=== PATIENT | female | born 1980 | race American Indian/Alaskan Native ===

== ENCOUNTER 2021-12-10 14:48 | Emergency (ER) | payer BC ==
--- NOTE | 2021-12-10 15:17 | Emergency Department Report ---
Blank Doc - Documentation Documentation: [facility] Consult Note # Demographics Consult Type: Acute Stroke Level 2 (4.5-24 hrs) Patient Location: Emergency Room First Name: Sayda Last Name: Ayaan Age: 41 Gender: Female Facility: [facility] Time of Initial Page ( Time): 12/10/2021, 14:27 Time of Return Call ( Time): 12/10/2021, 14:27 # HPI History: pt was last normal at 0700, returned home and found her with right sided weakness and aphasia. # Scores Time of exam and NIHSS ( Time): 12/10/2021, 15:13 Level of Consciousness 1a: [0] = Alert; keenly responsive LOC Questions 1b: [2] = Answers neither correctly LOC Commands 1c: [2] = Performs neither correctly Best Gaze 2: [0] = Normal Visual 3: [0] = No visual loss Facial Palsy 4: [0] = Normal symmetrical movements Motor Arm Left 5a: [2] = Some effort against gravity Motor Arm Right 5b: [3] = No effort against gravity Motor Leg Left 6a: [0] = No drift Motor Leg Right 6b: [0] = No drift Limb Ataxia 7: [0] = Absent Sensory 8: [0] = Normal Best Language 9: [3] = Mute Dysarthria 10: [2] = Severe dysarthria Extinction and Inattention 11: [0] = No abnormality NIHSS Total: 14 # PMH-FH-SH Past Medical History: Hodkin Lymphoma # Data Head CT: early ischemic change preliminarily reviewed by me, please refer to radiology read for official reading # Assessment Impression: Ischemic Stroke (Acute) # Plan Thrombolytic/Intervention: NOT IV Thrombolysis or IA Intervention candidate Thrombolytic Exclusion: > 4.5 hours Intraarterial Exclusion: unfavorable imaging/hypodensity Blood Pressure Management: labetolol Target Blood Pressure: SBP < 220 SBP > 100 Labs: hemoglobin A1c lipid panel Imaging: (urgency: STAT): CT Angiogram Head and CT Angiogram Neck AND call back with results if abnormal Imaging: (urgency: routine): MRI Brain without contrast Diagnostic Test: echo without bubble study Therapy/Evaluation: NPO until swallow evaluation PT/OT evaluation speech/swallow consultation Medication: aspirin 81 mg daily start statin with goal of LDL < 70 DVT Prophylaxis: SCD Other: LDL < 70 If patient has any neurological deterioration please call me back immediately permissive hypertension telemetry monitoring I have discussed my recommendations with the referring provider Disposition: admit # Logistics Telemedicine: Interactive 2 way audio and visual telecommunication technology was utilized during this visit
[2021-12-10 15:46] LABS: Basophils % (Auto) 0.3 % (0.0-1.8); Hematocrit 37.7 % (30.3-42.9); Hemoglobin 12.1 gm/dl (10.1-14.3); Lymphocytes # (Auto) 0.7 K/mm3 (1.2-5.4); Lymphocytes % (Auto) 9.8 % (13.4-35.0); Mean Corpuscular HGB Conc 32 % (30-34); Mean Corpuscular Volume 103 fl (79-97); Monocytes # (Auto) 0.2 K/mm3 (0.0-0.8); Monocytes % (Auto) 2.2 % (0.0-7.3); Platelet Count 209 K/mm3 (140-440); Red Blood Count 3.68 M/mm3 (3.65-5.03); Red Cell Distribution Width 13.8 % (13.2-15.2)
[2021-12-10 15:58] LABS: INR 0.93 (0.87-1.13); Partial Thromboplastin Time 28.3 Sec. (24.2-36.6)
[2021-12-10 15:59] LABS: Thrombin Time 18.9 Sec. (15.1-19.6)
[2021-12-10 16:01] LABS: Creatine Kinase MB 1.9 ng/mL (0.0-4.0)
--- NOTE | 2021-12-10 16:01 | Cat Scan Report ---
CT head/brain wo con INDICATION / CLINICAL INFORMATION: 41 years Female; Stroke symptoms. TECHNIQUE: Routine CT head without contrast. All CT scans at this location are performed using CT dos e reduction for ALARA by means of automated exposure control. COMPARISON: None. FINDINGS: BRAIN / INTRACRANIAL CONTENTS: Subtle loss of juan/white differentiation suggested in the left latera l gangliocapsular region. Early ischemic changes may be present. There is a small focus of high atten uation in the proximal M1 segment on the left-small thrombus cannot be excluded, although atheroscler otic disease might be a consideration. Otherwise, no acute hemorrhage, mass effect, midline shift, hydrocephalus, or acute, large territori al infarct. No signs of significant atrophy or chronic infarct. No significant white matter abnormali ty seen. CRANIOCERVICAL JUNCTION: No significant abnormality. ORBITS: No significant abnormality of visualized orbits. SINUSES / MASTOIDS: Visualized paranasal sinuses and mastoid air cells are essentially clear. ADDITIONAL FINDINGS: There may be an old fracture of the frontal process of the maxilla on the right. IMPRESSION: 1. Early ischemic changes in the left gangliocapsular region cannot be excluded. Diffusion imaging by MRI may be helpful for further evaluation, if clinically warranted. 2. Otherwise, no focal mass, hemorrhage, hydrocephalus, or ischemia seen. Signer Name: Salty Muñiz MD, III Signed: 12/10/2021 3:57 PM Workstation Name: [email or web address]
--- NOTE | 2021-12-10 16:11 | XRay Report ---
CHEST 1 VIEW INDICATION: stroke. COMPARISON: None. FINDINGS: Support devices: None. Heart: Normal. Lungs/Pleura: No acute pulmonary or pleural findings. There are mild atelectatic changes in the bases . IMPRESSION: 1. No acute findings. Signer Name: Ruperto Dennis MD Signed: 12/10/2021 4:06 PM Workstation Name: [id number]
[2021-12-10] MEDS ORDERED: SODIUM CHLORIDE 0.9% 1000 ML 1,000 ML ONE (16:15)
[2021-12-10] MEDS ORDERED: ASPIRIN 300 MG RECT SUPP PR ONE (16:18)
--- NOTE | 2021-12-10 16:21 | Emergency Department Report ---
HPI - General Chief Complaint: Neuro Symptoms/Deficit Time Seen by Provider: 12/10/21 14:58 - HPI HPI: 41-year-old female with reported history of Hodgkin's lymphoma brought in by EMS after she was found down with right-sided weakness and aphasia by her . According to the EMS report, the patient's last saw her at 7 AM at which time she was in her normal state of health without any neurologic deficits. When he came home, he discovered her on the ground with the aforementioned deficits and so 911 was called. Her initial fingerstick blood glucose was 136. She is noted to have right-sided weakness. She is aphasic and unable to comm unicate. Therefore details of the HPI are highly limited due to her current clinical condition. ED Review of Systems ROS: Stated complaint: ams Other details as noted in HPI Physical Exam - Physical Exam Vital Signs: Vital Signs 12/10/21 12/10/21 15:23 15:31 Pulse Rate 55 L 59 L Respiratory 18 19 Rate Blood Pressure 134/106 O2 Sat by Pulse 99 99 Oximetry ED Course Vital Signs 12/10/21 12/10/21 15:23 15:31 Pulse Rate 55 L 59 L Respiratory 18 19 Rate Blood Pressure 134/106 O2 Sat by Pulse 99 99 Oximetry ED Medical Decision Making - Lab Data Result diagrams: 12/10/21 15:23 12/10/21 Unknown Critical care attestation.: If time is entered above; I have spent that time in minutes in the direct care of this critically ill patient, excluding procedure time. ED Disposition Clinical Impression: Occlusion of left internal carotid artery, Stroke Condition: Stable
--- NOTE | 2021-12-10 16:27 | Cat Scan Report ---
CT angio neck INDICATION / CLINICAL INFORMATION: 41 years Female; stroke. TECHNIQUE: Thin cut axial images obtained through the head during IV bolus contrast administration. S agittal, coronal, and 3 plane MIP reconstructions performed by the technologist. NASCET type criteria used evaluate stenoses. All CT scans at this location are performed using CT dose reduction for ALAR A by means of automated exposure control. . COMPARISON: None available. FINDINGS: ARCH: Bovine arch configuration noted. I cannot exclude a small intimal flap in the aortic arch, although the findings may be artifactual. H owever because of the findings involving the left internal carotid artery, CTA of the chest may be he lpful for further evaluation. CAROTID ARTERIES: Right common and internal carotid artery are widely patent. The left common carotid artery is widely patent. However, there is tapering of contrast seen in the proximal left internal carotid artery leading to c omplete occlusion in the region of the distal bulb. Dissection could be a consideration. There is no evidence of flow seen in the remainder of the internal carotid artery, including the intracranial por tion. VERTEBRAL ARTERIES: Right dominant vertebral system seen. The nondominant left vertebral artery large ly terminates in the left PICA territory. ADDITIONAL FINDINGS: Mildly prominent asymmetric soft tissue seen in the right vallecula when compare d with the left, presumably related to lingual tonsillar tissue. Direct visual inspection may be of b enefit. IMPRESSION: 1. Occluded left internal carotid artery as described above-would question dissection. 2. CTA of the chest may be of benefit, as described above. Signer Name: Salty Muñiz MD, III Signed: 12/10/2021 4:22 PM Workstation Name: [email or web address]
--- NOTE | 2021-12-10 16:45 | Cat Scan Report ---
CT angio head INDICATION / CLINICAL INFORMATION: 41 years Female; stroke. TECHNIQUE: Thin cut axial images obtained through the head during IV bolus contrast administration. S agittal, coronal, and 3 plane MIP reconstructions performed by the technologist. NASCET type criteria used evaluate stenoses. Automated exposure control utilized for radiation reduction purposes. . COMPARISON: CT head - 12/10/2021 from 2:49 PM, central standard time FINDINGS: INTERNAL CAROTID ARTERIES: The right internal carotid artery is widely patent. The left internal carotid artery is occluded. VERTEBROBASILAR SYSTEM: No significant narrowing appreciated. DISTAL BRANCHES: Distal branches of the anterior and posterior cerebral arteries are fairly symmetric in appearance and number. The proximal middle cerebral artery is occluded, involving the entire M1 segment and extending into s ome of the MCA trifurcation vessels. The proximal posterior communicating artery on the left is occluded as well. ANEURYSM: None identified. ADDITIONAL FINDINGS: Ischemic changes are now seen not only in the lateral gangliocapsular region, bu t also in portions of the left frontoparietal temporal region. IMPRESSION: 1. Occlusion of the left internal carotid artery spine 2. Occlusion of the M1 segment of the left MCA, as well as portions of the left MCA trifurcation salvador on. 3. Worsening ischemic changes now appreciated in the left MCA territory, when compared with CT of the head. Signer Name: Salty Muñiz MD, III Signed: 12/10/2021 4:41 PM Workstation Name: [email or web address]
[2021-12-10 17:09] LABS: Alanine Aminotransferase 15 units/L (7-56); Albumin 4.3 g/dL (3.9-5); BUN/Creatinine Ratio 13; Blood Urea Nitrogen 12 mg/dL (7-17); Calcium 9.8 mg/dL (8.4-10.2); Hemolysis Index 8
[2021-12-10 17:12] LABS: Bilirubin,Direct < 0.2 mg/dL (0-0.2)
[2021-12-10] MEDS ORDERED: SODIUM CHLORIDE 0.9% 1000 ML 1,000 ML IV ONE (17:12)
[2021-12-10] MEDS ORDERED: ONDANSETRON 4 MG/2 ML INJ ONE (17:27)
[2021-12-10 18:11] VITALS: BP 117/64
[2021-12-11 06:36] LABS: Bacteria,Urine 1+ /HPF (Negative); Bilirubin,Urine NEG (Negative); Blood,Urine SM (Negative); Color,Urine Yellow (Yellow); Mucus,Urine FEW /HPF; Protein,Urine <15 mg/dL mg/dL (Negative); Urobilinogen,Urine < 2.0 mg/dL (<2.0)
[2021-12-11 06:40] LABS: Amphetamine Screen,Urine Negative; Benzodiazepines Screen,Urine Negative; Cocaine Screen,Urine Negative; Methadone Screen,Urine Negative; Opiate Screen,Urine Negative
[2021-12-11 06:56] LABS: Cannabinoid Screen,Urine PRESUMPTIVE POSITIVE
--- NOTE | 2021-12-12 11:30 | Electrocardiograph Report ---
[facility] Test Date: 2021-12-10 Test Time: 15:49:11 Pat Name: DELLA FLOYD Department: Room: Gender: F Form Raiser: GP : 1980 Requested By: FARHANA GRIFFIN Order Number: [id number] Reading MD: Agusto Good Measurements Intervals [place] Rate: 50 P: 29 [place]: 170 QRS: 62 QRSD: 106 T: 49 QT: 415 QTc: 378 Interpretive Statements Sinus rhythm No previous ECG available for comparison Electronically Signed On 12-12-2021 11:30:08 EST by Agusto Good
== END 2021-12-10 18:29 | disposition short-term general hospital (02) ==
LOC: ED 14:48
DX: I63.232 Cerebral infarction due to unspecified occlusion or stenosis of left carotid arteries (principal); Z85.71 Personal history of Hodgkin lymphoma
CPT/HCPCS: 36415; 70450; 70496; 70498; 71045; 80048; 80076; 80307; 81001; 82550; 82553; 83690; 83735; 84484; 85025; 85610; 85670; 85730; 93005; 93010; 96360; 99285; J2405; J7030; Q9967; Q0162